=== PATIENT | male | born 2000 | race African-American/Black ===

== ENCOUNTER 2018-10-21 00:13 | Emergency (ER) | payer SELFPAY ==
[~2018-10-21] VITALS: Ht 170.2 cm; Wt 64.4 kg
[2018-10-21 00:25] VITALS: BP 130/84
== END 2018-10-21 04:35 | disposition home or self-care (01) ==
LOC: ER 00:19
DX: H53.10 Unspecified subjective visual disturbances (principal); R51 Headache
CPT/HCPCS: 70450